=== PATIENT | male | born 1935 | race Caucasian/White ===

== ENCOUNTER 2019-02-07 12:36 | Day surgery (SDC) | payer MEDICARE, OTHER ==
[2019-02-06 12:13] LABS: BASOPHILS % (AUTO) 0.6 % (0-1); EOSINOPHILS # (AUTO) 0.3 X10'3 (0-0.9); EOSINOPHILS % (AUTO) 4.4 % (0-6); HEMATOCRIT 43.4 % (42.0-52.0); HEMOGLOBIN 14.8 g/dl (14.0-17.9); LYMPHOCYTES # (AUTO) 1.7 X10'3 (1.1-4.8); LYMPHOCYTES % (AUTO) 24.1 % (21-51); MEAN CORPUSCULAR HEMOGLOBIN 31.1 PG (27.0-31.0); MEAN CORPUSCULAR HGB CONC 34.2 g/dL (33.0-36.5); MEAN CORPUSCULAR VOLUME 91.1 FL (78-98); MEAN PLATELET VOLUME 8.1 FL (7.4-10.4); MONOCYTES # (AUTO) 0.7 X10'3 (0-0.9); MONOCYTES % (AUTO) 10.1 % (2-12); NEUTROPHILS # (AUTO) 4.4 X10'3 (1.8-7.7); NEUTROPHILS % (AUTO) 60.8 % (42-75); PLATELET COUNT 202 X10'3 (140-440); RED BLOOD COUNT 4.76 X10'6 (4.70-6.10); RED CELL DISTRIBUTION WIDTH 13.9 % (11.5-14.5); WHITE BLOOD COUNT 7.2 X10'3 (4.5-11.0)
[2019-02-06 12:19] LABS: ALBUMIN 3.5 G/DL (3.4-5.0); ANION GAP 9 (8-16); BLOOD UREA NITROGEN 34 MG/DL (7-18); BUN/CREATININE RATIO 22.7 (5.4-32.0); CALCIUM 9.1 MG/DL (8.5-10.1); CHLORIDE 105 MMOL/L (99-107); GLUCOSE 110 MG/DL (70-104); POTASSIUM 4.6 MMOL/L (3.5-5.1); SODIUM 138 MMOL/L (135-145); TOTAL CARBON DIOXIDE 23.6 MMOL/L (24-32); eGFR 45 ML/MIN
[2019-02-06 13:14] LABS: PARTIAL THROMBOPLASTIN TIME 25 SECONDS (22-32)
[2019-02-07] VITALS (9 sets, daily range): BP systolic 125–149; BP diastolic 59–84
[~2019-02-07] VITALS: Ht 182.9 cm; Wt 90.2 kg
[~2019-02-07 12:36] MED LIST: BENA40TA8 PO; CLOP75TA15 PO; FINA5TAB11 PO; SIMV20TA5 PO
[2019-02-07] MEDS ORDERED: LORazepam 0.5 MG tablet PO PRN (12:55)
[2019-02-07] MEDS ORDERED: normal saline 1,000 ML IV SCH (12:55)
[2019-02-07] MEDS ORDERED: diphenhydrAMINE 25mg capsule PO PRN (12:55)
[2019-02-07] MEDS ORDERED: BENA10TA74 PO (12:56)
[2019-02-07] MEDS ORDERED: iohexol 350MG/ML 100ml bottle IV ONE (15:25)
[2019-02-07] MEDS ORDERED: LIDOcaine 1% (10mg/ml)w/preservative injection 20ml MDV ONE (15:25)
[2019-02-07] MEDS ORDERED: fentaNYL/PF 50MCG/1 ML 2ML syringe ONE (15:42)
[2019-02-07] MEDS ORDERED: midazolam 2 mg/2 ml injection ONE (15:42)
[2019-02-07] MEDS ORDERED: ondansetron/PF 4mg/2ml inj IV PRN (17:20)
[2019-02-07] MEDS ORDERED: HYDROcodone/acetaminophen 5mg/325mg tablet PO PRN (17:20)
[2019-02-07] MEDS ORDERED: nitroGLYCERIN 0.4mg SUBLingual tab SL PRN (17:20)
[2019-02-07] MEDS ORDERED: OXAZEpam 15mg capsule PO PRN (17:20)
[2019-02-07] MEDS ORDERED: HYDROcodone/acetaminophen 10/325mg tab PO PRN (17:20)
[2019-02-07] MEDS ORDERED: proCHLORperazine 10 MG/2 ml inj IV PRN (17:20)
== END 2019-02-07 19:50 | disposition home or self-care (01) ==
LOC: SSTAY O 12:36
PROVIDERS: ATTEND Internal Medicine Interventional Cardiology
DX: I25.10 Atherosclerotic heart disease of native coronary artery without angina pectoris (principal); I10 Essential (primary) hypertension; E78.5 Hyperlipidemia, unspecified; Z86.73 Personal history of transient ischemic attack (TIA), and cerebral infarction without residual deficits
CPT/HCPCS: 36415; 80048; 85025; 85610; 85730; 93458; 99152; A6257; C1769; J1644; J2001; J2250; J3010; J7030; Q0163; Q9967; 93005; A4620

== ENCOUNTER 2019-08-15 09:54 | Inpatient (IN) | payer OTHER ==
[2019-08-03 11:17] LABS: BASOPHILS % (AUTO) 0.5 % (0-1); EOSINOPHILS # (AUTO) 0.3 X10'3 (0-0.9); LYMPHOCYTES # (AUTO) 1.3 X10'3 (1.1-4.8); LYMPHOCYTES % (AUTO) 22.7 % (21-51); MEAN CORPUSCULAR HEMOGLOBIN 31.7 PG (27.0-31.0); MEAN CORPUSCULAR HGB CONC 33.5 g/dL (33.0-36.5); MEAN CORPUSCULAR VOLUME 94.8 FL (78-98); MEAN PLATELET VOLUME 8.1 FL (7.4-10.4); MONOCYTES # (AUTO) 0.6 X10'3 (0-0.9); MONOCYTES % (AUTO) 9.5 % (2-12); NEUTROPHILS # (AUTO) 3.6 X10'3 (1.8-7.7); NEUTROPHILS % (AUTO) 62.3 % (42-75); PRE OP HEMATOCRIT 40.8 % (42.0-52.0); PRE OP HEMOGLOBIN 13.7 g/dL (14.0-17.9); PRE OP PLATELET COUNT 179 X10'3 (140-440); RED CELL DISTRIBUTION WIDTH 13.2 % (11.5-14.5)
[2019-08-03 11:32] LABS: ALBUMIN 3.3 G/DL (3.4-5.0); ALKALINE PHOSPHATASE 105 IU/L (46-116); BLOOD UREA NITROGEN 27 MG/DL (7-18); BUN/CREATININE RATIO 15.5 (5.4-32.0); CHLORIDE 107 MMOL/L (99-107); CREATININE 1.74 MG/DL (0.60-1.10); PRE OP ALT 16 U/L (30-65); PRE OP ANION GAP 3 (8-16); PRE OP AST 18 U/L (10-37); PRE OP GLUCOSE 93 MG/DL (70-104); PRE OP POTASSIUM 4.7 MMOL/L (3.4-5.1); PRE OP SODIUM 141 MMOL/L (135-145); TOTAL CARBON DIOXIDE 30.8 MMOL/L (24-32); TOTAL PROTEIN 6.6 G/DL (6.4-8.2); eGFR 38 ML/MIN
[~2019-08-15] VITALS: Ht 175.3 cm; Wt 88.5 kg
[2019-08-15] VITALS (21 sets, daily range): BP systolic 117–146; BP diastolic 62–86
[~2019-08-15 09:54] MED LIST changes: +BENA10TA74 PO; -BENA40TA8 PO; -FINA5TAB11 PO; +SIMV-42 PO; -SIMV20TA5 PO; +cefazolin/dext.iso 2gm/100ml 100 ML IV ONE; +famotidine 10mg tablet PO ONE; +ringers solution, lacted 1,000 ML IV SCH; +tranexamic acid inj. 880 MG in normal saline 100ml IV soln 100 ML IV ONE; +vancomycin inj 1,500 MG in normal saline 300ml IV soln IV ONE
[2019-08-15] MEDS ORDERED: fentaNYL/PF 50MCG/1 ML 2ML syringe ONE (13:08)
[2019-08-15] MEDS ORDERED: midazolam 2 mg/2 ml injection ONE (13:08)
[2019-08-15] MEDS ORDERED: ROPIVAcaine 0.5% (5mg/ml) 30ml vial ONE (13:54)
[2019-08-15] MEDS ORDERED: sevoflurane 250ml liquid IH ONE (15:30)
[2019-08-15] MEDS ORDERED: ringers solution, lacted 1,000 ML IV SCH (16:08)
[2019-08-15] MEDS ORDERED: ROPIVAcaine 0.2%/PF PUMP/bolus 550 ML INTERSCALE SCH (16:08)
[2019-08-15] MEDS ORDERED: ROPIVAcaine 0.2% (10 MG/5 ML) BOLUS INJECTION INTERSCALE PRN (16:10)
[2019-08-15] MEDS ORDERED: HYDROmorphone inj. 0.5 MG/0.5 ML DISP.SYRIN IV PRN ×2 (16:10→18:05)
[2019-08-15] MEDS ORDERED: ondansetron/PF 4mg/2ml inj IV PRN ×2 (16:10→18:05)
[2019-08-15] MEDS ORDERED: morphine 4 MG/ML inj SYRINge IV PRN (16:10)
[2019-08-15] MEDS ORDERED: dexamethasone sod phosphate 4mg/ml inj. ONE (17:04)
[2019-08-15] MEDS ORDERED: ondansetron/PF 4mg/2ml inj ONE (17:04)
[2019-08-15] MEDS ORDERED: LIDOcaine 1%/PF 5ML 10 MG/ML VIAL ONE (17:04)
[2019-08-15] MEDS ORDERED: glycopyrrolate 0.2mg/ml inj ONE (17:04)
[2019-08-15] MEDS ORDERED: propofol inj 20 ML IV ONE (17:04)
--- NOTE | 2019-08-15 17:57 | NUR ---
Received from OR via BED, accompanied by Anesthesiologist DR GOOD and report given by Anesthesiologist. PT DROWSY, DENIES PAIN, RIGHT SHOULDER W/DRSG, SHOULDER WRAP, ICE PACK CDI, RIGHT ARM IN SLING Addendum: 08/15/19 at 2008 by Cami Donnelly RN Amended: Links added.
[2019-08-15] MEDS: potassium cl 20mEq in 1/2 NS 1,000 ML IV SCH (18:04)
[2019-08-15] MEDS ORDERED: oxyCODONE IR 5mg (immed. release) tablet PO PRN ×2 (18:05)
[2019-08-15] MEDS ORDERED: magnesium hydroxide 30ml (MOM) UD suspension PO PRN (18:05)
[2019-08-15] MEDS ORDERED: HYDROmorphone 1 mg/ml syringe IV PRN (18:05)
[2019-08-15] MEDS ORDERED: acetaminophen 325mg tablet PO PRN (18:05)
[2019-08-15] MEDS ORDERED: diphenhydrAMINE 25mg capsule PO PRN ×2 (18:05)
[2019-08-15] MEDS ORDERED: bisacodyl 10mg suppository rectal RC PRN (18:05)
--- NOTE | 2019-08-15 19:47 | NUR ---
Report called to receiving nurse. Transferred via BED, 2 BAGS OF Belongings SENT W/PT TO ROOM 4022A, RECEIVING RN AT BEDSIDE TO RECEIVE PT, PRESENT, CALL LIGHT GIVEN, BLL, SIDE RAILS UP X 2. Special Issues communicated to receiving nurse. YES. Addendum: 08/15/19 at 2009 by Cami Donnelly RN Amended: Links added.
[2019-08-15] MEDS ORDERED: VANCOMYCIN 1gm/H2O 200ml PB 200 ML IV SCH (20:00)
[2019-08-15] MEDS ORDERED: vancomycin/NS 1 GM ADD-VANTAGE 250 ML IV SCH (20:00)
[2019-08-15] MEDS: acetaminophen 325mg tablet PO SCH (20:00)
[2019-08-15] MEDS ORDERED: sennosides 8.6mg tablet PO SCH (21:00)
[2019-08-16] MEDS: ceFAZolin 1GM/D5W- ADD-VANTAGE 50 ML IV SCH ×2 (00:13→07:49)
[2019-08-16] MEDS: potassium cl 20mEq in 1/2 NS 1,000 ML IV SCH ×2 (00:13→10:04)
[2019-08-16] MEDS: acetaminophen 325mg tablet PO SCH ×2 (02:18→07:48)
[2019-08-16 02:29] VITALS: BP 112/78
[2019-08-16 06:00] VITALS: BP 134/76
--- NOTE | 2019-08-16 06:13 | NUR ---
Report given to Jesus COLÓN.
[2019-08-16 06:46] LABS: BASOPHILS % (AUTO) 0.2 % (0-1); EOSINOPHILS % (AUTO) 0 % (0-6); HEMOGLOBIN 12.7 g/dl (14.0-17.9); LYMPHOCYTES # (AUTO) 0.8 X10'3 (1.1-4.8); LYMPHOCYTES % (AUTO) 10.5 % (21-51); MEAN CORPUSCULAR HGB CONC 34.4 g/dL (33.0-36.5); MEAN PLATELET VOLUME 8.5 FL (7.4-10.4); MONOCYTES # (AUTO) 0.6 X10'3 (0-0.9); MONOCYTES % (AUTO) 8.5 % (2-12); NEUTROPHILS % (AUTO) 80.8 % (42-75); PLATELET COUNT 139 X10'3 (140-440); RED BLOOD COUNT 3.98 X10'6 (4.70-6.10); RED CELL DISTRIBUTION WIDTH 13.5 % (11.5-14.5); WHITE BLOOD COUNT 7.4 X10'3 (4.5-11.0)
--- NOTE | 2019-08-16 06:46 | NUR ---
Patient in room [facility] 4022. I have received report from Angelique Urena RN and had the opportunity to ask questions and assume patient care.
[2019-08-16 07:00] VITALS: BP 121/72
[2019-08-16 07:04] LABS: ANION GAP 6 (8-16); CHLORIDE 107 MMOL/L (99-107); POTASSIUM 4.8 MMOL/L (3.5-5.1); SODIUM 138 MMOL/L (135-145); TOTAL CARBON DIOXIDE 25.3 MMOL/L (24-32)
[2019-08-16] MEDS ORDERED: lisinopril 10 MG tablet PO SCH (08:00)
[2019-08-16] MEDS ORDERED: atorvastatin 10mg tablet PO SCH (08:00)
[2019-08-16] MEDS ORDERED: clopidogrel 75mg tablet PO SCH (08:00)
[2019-08-16] MEDS ORDERED: aspirin 325mg tablet PO SCH (08:30)
[2019-08-16 10:00] VITALS: BP 108/55
--- NOTE | 2019-08-16 11:24 | NUR ---
Joint replacement consult: Pt seen by DALE for written/verbal high protein ed w/ RD contact information provided. Pt reports d/c prior to lunch today and reports no nutrition concerns. DALE encouraged pt to call dietitian's office if questions/concerns. Addendum: 08/16/19 at [address] Amended: Links added.
--- NOTE | 2019-08-16 12:30 | NUR ---
Patient discharged to home with , patient and educated on on-q and surgical incision care with understanding. All belongings sent with patient, patient stable upon discharge
[2019-08-16] MEDS ORDERED: celeCOXIB 100mg capsule PO SCH (20:00)
[2019-08-17] MEDS ORDERED: acetaminophen 325mg tablet PO PRN (18:05)
== END 2019-08-16 12:40 | disposition home or self-care (01) | DRG 483 ==
LOC: PAS IN 09:54 → EDSTATUS 13:15 → ORTHO 4S 19:50
PROVIDERS: ADMIT Orthopaedic Surgery; ATTEND Orthopaedic Surgery
PROC: 0RRJ00Z Replacement of Right Shoulder Joint with Reverse Ball and Socket Synthetic Substitute, Open Approach (ICD-10-PCS; principal; 2019-08-15 15:30)
DX: M19.011 Primary osteoarthritis, right shoulder (principal); D62 Acute posthemorrhagic anemia; M25.511 Pain in right shoulder; M75.121 Complete rotator cuff tear or rupture of right shoulder, not specified as traumatic; M19.91 Primary osteoarthritis, unspecified site; M65.9 Synovitis and tenosynovitis, unspecified; M75.100 Unspecified rotator cuff tear or rupture of unspecified shoulder, not specified as traumatic; I10 Essential (primary) hypertension; C61 Malignant neoplasm of prostate; E78.5 Hyperlipidemia, unspecified
CPT/HCPCS: Z7506; Z7508; 36415; 73020; 80051; 80053; 82948; 85025; 87081; 97161; 97530; A4565; A4618; A7000; C1776; G0378; J0690; J1100; J1170; J2250; J2405; J2704; J2795; J3010; J3370; J3480; J3490; J7120

== ENCOUNTER 2022-08-22 09:08 | Emergency (ER) | payer OTHER ==
[~2022-08-22] VITALS: Ht 182.9 cm; Wt 88.0 kg
[~2022-08-22 09:08] MED LIST changes: -cefazolin/dext.iso 2gm/100ml 100 ML IV ONE; -famotidine 10mg tablet PO ONE; -ringers solution, lacted 1,000 ML IV SCH; -tranexamic acid inj. 880 MG in normal saline 100ml IV soln 100 ML IV ONE; -vancomycin inj 1,500 MG in normal saline 300ml IV soln IV ONE
[2022-08-22 09:18] VITALS: BP 154/76
[2022-08-22] MEDS ORDERED: acetaminophen 325mg tablet PO ONE (11:00)
== END 2022-08-22 11:19 | disposition home or self-care (01) ==
LOC: ER 09:10
DX: M25.531 Pain in right wrist (principal); M25.551 Pain in right hip; I10 Essential (primary) hypertension; Z88.0 Allergy status to penicillin; Z79.899 Other long term (current) drug therapy; W00.0XXA Fall on same level due to ice and snow, initial encounter; Y93.89 Activity, other specified; Y92.89 Other specified places as the place of occurrence of the external cause; Y99.8 Other external cause status
CPT/HCPCS: 29125; 73110; 99284; L3908